=== PATIENT | female | born 1965 | race Caucasian/White ===

== ENCOUNTER 2016-08-07 21:29 | Emergency (ER) | payer MEDICARE, MEDICAID ==
[~2016-08-07 21:29] MED LIST: CYMBALTA PO; GABAPENTIN PO; TRAMADOL PO
== END 2016-08-07 23:27 | disposition left against medical advice (07) ==
LOC: ER 23:00
DX: R51 Headache (principal); R50.9 Fever, unspecified; Z53.21 Procedure and treatment not carried out due to patient leaving prior to being seen by health care provider

== ENCOUNTER 2016-08-11 07:00 | Emergency (ER) | payer MEDICARE, MEDICAID ==
[~2016-08-11] VITALS: Ht 160 cm; Wt 91.0 kg
[2016-08-11] MEDS ORDERED: ACETAMINOPHEN WITH CODEINE 120-12MG/5ML UDC PO ONE (09:30)
[2016-08-11 10:10] LABS: CLARITY URINE CLEAR (CLEAR); COLOR URINE YELLOW (YELLOW); GLUCOSE URINE NEGATIVE (NEGATIVE); KETONES URINE NEGATIVE (NEGATIVE); LEUKOCYTE ESTERASE URINE NEGATIVE (NEGATIVE); NITRITE URINE NEGATIVE (NEGATIVE); OCCULT BLOOD URINE 3+ (NEGATIVE); PROTEIN URINE NEGATIVE (NEGATIVE); SPECIFIC GRAVITY URINE 1.023 (1.005-1.030); UROBILINOGEN URINE 0.2 E.U./dL (0.2-1.0)
[2016-08-11 10:34] LABS: SQUAMOUS EPITHELIAL CELL URINE 2+ /lpf (RARE/1+)
[2016-08-11 10:35] LABS: BACTERIA URINE TRACE
[2016-08-11 10:36] LABS: AMORPHOUS SEDIMENT URINE 1+ /lpf; MUCUS URINE 2+ /lpf (< = 2+)
[2016-08-11] MEDS ORDERED: KETOROLAC 30MG/ML VIAL IV ONE (10:45)
[2016-08-11] MEDS ORDERED: SODIUM CHLORIDE 0.9% 1,000 ML IV ONE (10:45)
[2016-08-11 11:15] LABS: DIFFERENTIAL COMMENT 0; HEMATOCRIT. 30.1 % (36.0-48.0); HEMOGLOBIN. 9.6 g/dL (12.0-16.0); MEAN CORPUSCULAR HEMOGLOBIN 23.6 pg (28.0-32.0); MEAN CORPUSCULAR HGB CONC 31.8 g/dL (31.0-37.0); PLATELET 383 x1000/uL (130-400); RED BLOOD CELL COUNT 4.07 mill/uL (4.2-5.4); RED CELL DISTRIBUTION WIDTH 19.1 % (11.6-14.6); WHITE BLOOD COUNT 10.3 x1000/uL (4.5-11.0)
[2016-08-11 11:22] LABS: ANION GAP 13; CARBON DIOXIDE 25 mEq/L (21-32); CHLORIDE 106 mEq/L (98-107); INDEX HEMOLYSI 1 (1-3); INDEX ICTERIC 1 (1-4); INDEX LIPEMIC 1 (1-3); UREA NITROGEN BLOOD 10 mg/dL (7-21); eGFR > 60 mL/min (>60)
[2016-08-11 11:37] LABS: ANISOCYTOSIS 1+
[2016-08-11 11:38] LABS: HYPOCHROMASIA 1+; PLATELET ESTIMATE NORMAL
[2016-08-11 13:20] VITALS: BP 139/89
== END 2016-08-11 13:24 | disposition home or self-care (01) ==
LOC: ER 07:33
DX: J02.9 Acute pharyngitis, unspecified (principal); N39.0 Urinary tract infection, site not specified; M79.7 Fibromyalgia
CPT/HCPCS: 36415; 76770; 80048; 81001; 81025; 85007; 85027; 87070; 87086; 87430; 96361; 96374; 99285; J1885; J7030

== ENCOUNTER 2017-10-23 12:22 | Emergency (ER) | payer MEDICARE, MEDICAID ==
[~2017-10-23] VITALS: Ht 160 cm; Wt 86.0 kg
[~2017-10-23 12:22] MED LIST changes: -CYMBALTA PO; +DULO60CA44 PO; +TRAM50TA3 PO; -TRAMADOL PO
[2017-10-23 14:19] LABS: CLARITY URINE CLOUDY (CLEAR); COLOR URINE YELLOW (YELLOW); KETONES URINE NEGATIVE (NEGATIVE); LEUKOCYTE ESTERASE URINE NEGATIVE (NEGATIVE); NITRITE URINE NEGATIVE (NEGATIVE); OCCULT BLOOD URINE NEGATIVE (NEGATIVE); PH URINE 5.5 (4.5-8.0); PROTEIN URINE NEGATIVE (NEGATIVE); SPECIFIC GRAVITY URINE 1.024 (1.005-1.030); UROBILINOGEN URINE 0.2 E.U./dL (0.2-1.0)
[2017-10-23 14:40] LABS: CHLORIDE 108 mEq/L (98-107)
[2017-10-23 15:02] LABS: BASOPHILS % 1.1 % (0.0-2.0); HEMATOCRIT. 32.8 % (36.0-48.0); HEMOGLOBIN. 10.5 g/dL (12.0-16.0); LYMPHOCYTES % 26.2 % (20.0-50.0); MEAN CORPUSCULAR HEMOGLOBIN 23.3 pg (28.0-32.0); MEAN CORPUSCULAR VOLUME 72.6 fL (81.0-99.0); MEAN PLATELET VOLUME 8.1 fl (7.4-10.4); MONOCYTES % 7.7 % (2.0-8.0); PLATELET 465 x1000/uL (130-400); RED BLOOD CELL COUNT 4.51 mill/uL (4.2-5.4); RED CELL DISTRIBUTION WIDTH 23.5 % (11.6-14.6)
[2017-10-23] MEDS ORDERED: SODIUM CHLORIDE 0.9% 1,000 ML IV ONE (15:47)
[2017-10-23] MEDS ORDERED: KETOROLAC 30MG/ML VIAL IV STA (15:47)
[2017-10-23] MEDS ORDERED: ONDANSETRON HCL 4MG/2ML VIAL IV STA (15:47)
[2017-10-23 15:51] LABS: PLATELET ESTIMATE INCREASED
[2017-10-23 17:58] VITALS: BP 134/82
== END 2017-10-23 18:33 | disposition home or self-care (01) ==
LOC: ER 14:49
DX: R10.2 Pelvic and perineal pain (principal); M54.89 Other dorsalgia; R30.0 Dysuria; I10 Essential (primary) hypertension; Z96.649 Presence of unspecified artificial hip joint
CPT/HCPCS: 36415; 74176; 80053; 81003; 81025; 83690; 85025; 96374; 96375; 99285; J1885; J2405; J7030

== ENCOUNTER 2017-12-14 17:37 | Emergency (ER) | payer OTHER, MEDICAID ==
[~2017-12-14] VITALS: Ht 165.1 cm; Wt 86.0 kg
[2017-12-14 18:01] VITALS: BP 130/89
== END 2017-12-15 01:39 | disposition left against medical advice (07) ==
LOC: ER 22:03
DX: Z53.21 Procedure and treatment not carried out due to patient leaving prior to being seen by health care provider (principal)

== ENCOUNTER 2018-01-22 14:49 | Emergency (ER) | payer MEDICARE, MEDICAID ==
[~2018-01-22] VITALS: Ht 160 cm; Wt 85.0 kg
[2018-01-22 14:52] VITALS: BP 155/93
== END 2018-01-22 19:07 | disposition left against medical advice (07) ==
LOC: ER 14:49
DX: Z00.8 Encounter for other general examination (principal); Z53.21 Procedure and treatment not carried out due to patient leaving prior to being seen by health care provider

== ENCOUNTER 2018-09-24 13:53 | Emergency (ER) | payer MEDICARE, MEDICAID ==
[~2018-09-24] VITALS: Ht 165.1 cm; Wt 84.0 kg
[2018-09-24] MEDS ORDERED: MORPHINE SULFATE 10 MG/ML CPJ IM ONE (17:15)
[2018-09-24] MEDS ORDERED: ONDANSETRON 4MG ODT PO ONE (17:15)
[2018-09-24 17:23] LABS: CLARITY URINE CLOUDY (CLEAR); COLOR URINE YELLOW (YELLOW); KETONES URINE TRACE (NEGATIVE); LEUKOCYTE ESTERASE URINE 1+ (NEGATIVE); NITRITE URINE POSITIVE (NEGATIVE); OCCULT BLOOD URINE 2+ (NEGATIVE); PH URINE 6.5 (4.5-8.0); PROTEIN URINE NEGATIVE (NEGATIVE)
[2018-09-24 19:07] VITALS: BP 150/86
== END 2018-09-24 19:09 | disposition home or self-care (01) ==
LOC: ER 13:53
DX: S43.401A Unspecified sprain of right shoulder joint, initial encounter (principal); N12 Tubulo-interstitial nephritis, not specified as acute or chronic; I10 Essential (primary) hypertension; Z96.649 Presence of unspecified artificial hip joint; Z98.890 Other specified postprocedural states; W01.0XXA Fall on same level from slipping, tripping and stumbling without subsequent striking against object, initial encounter; Y93.89 Activity, other specified; Y92.89 Other specified places as the place of occurrence of the external cause; Y99.8 Other external cause status
CPT/HCPCS: 73030; 81003; 81025; 87077; 87086; 87186; 96372; 99284; J2270; Q0162

== ENCOUNTER 2018-12-28 21:58 | Emergency (ER) | payer MEDICARE, MEDICAID ==
[~2018-12-28] VITALS: Ht 165.1 cm; Wt 84.0 kg
[2018-12-28] MEDS ORDERED: SODIUM CHLORIDE 0.9% 1,000 ML IV ONE (22:46)
[2018-12-28] MEDS ORDERED: ONDANSETRON HCL 4MG/2ML INJ IV STA (22:46)
[2018-12-28] MEDS ORDERED: MORPHINE SULFATE 4 MG/ML CPJ (NOT FOR IM USE) IV STA (22:46)
[2018-12-28] MEDS ORDERED: KETOROLAC 30MG/ML VIAL IV STA (22:46)
[2018-12-28 23:00] LABS: BASOPHILS % 1.2 % (0.0-2.0); HEMATOCRIT. 41.4 % (36.0-48.0); HEMOGLOBIN. 14.3 g/dL (12.0-16.0); LYMPHOCYTES % 33.2 % (20.0-50.0); MEAN CORPUSCULAR HEMOGLOBIN 30.2 pg (28.0-32.0); MEAN CORPUSCULAR VOLUME 87.6 fL (81.0-99.0); MEAN PLATELET VOLUME 8.7 fl (7.4-10.4); MONOCYTES % 6.2 % (2.0-8.0); NEUTROPHILS % 55.4 % (40.0-76.0); PLATELET 358 x1000/uL (130-400); RED BLOOD CELL COUNT 4.73 mill/uL (4.2-5.4); RED CELL DISTRIBUTION WIDTH 13.7 % (11.6-14.6)
[2018-12-28 23:02] LABS: CHLORIDE 110 mEq/L (98-107)
[2018-12-28 23:03] LABS: PROTHROMBIN TIME 10.1 sec (9.6-11.0)
[2018-12-28 23:04] LABS: HCG SCREEN NEGATIVE
[2018-12-28 23:06] LABS: ETHANOL BLOOD < 10 mg/dL
[2018-12-28 23:09] LABS: CLARITY URINE CLOUDY (CLEAR); COLOR URINE YELLOW (YELLOW); KETONES URINE NEGATIVE (NEGATIVE); LEUKOCYTE ESTERASE URINE 1+ (NEGATIVE); NITRITE URINE NEGATIVE (NEGATIVE); OCCULT BLOOD URINE 1+ (NEGATIVE); PH URINE 5.5 (4.5-8.0); PROTEIN URINE NEGATIVE (NEGATIVE); SPECIFIC GRAVITY URINE 1.017 (1.005-1.030); UROBILINOGEN URINE 0.2 E.U./dL (0.2-1.0)
[2018-12-28 23:21] LABS: *AMPHETAMINES SCREEN URINE NEGATIVE (NEGATIVE); *BARBITURATES SCREEN URINE NEGATIVE (NEGATIVE); *BENZODIAZEPINES SCREEN URINE NEGATIVE (NEGATIVE); *COCAINE SCREEN URINE NEGATIVE (NEGATIVE); METHADONE URINE SCREEN NEGATIVE (NEGATIVE)
[2018-12-28 23:22] LABS: CANNABINOID URINE SCREEN NEGATIVE (NEGATIVE); OPIATES URINE SCREEN NEGATIVE (NEGATIVE); PHENCYCLIDINE URINE SCREEN NEGATIVE (NEGATIVE)
[2018-12-29] MEDS ORDERED: CEFTRIAXONE 1 G PREMIX 50 ML IV ONE (01:30)
[2018-12-29 02:15] VITALS: BP 136/80
== END 2018-12-29 02:20 | disposition home or self-care (01) ==
LOC: ER 21:58
DX: N30.90 Cystitis, unspecified without hematuria (principal); I10 Essential (primary) hypertension; M79.7 Fibromyalgia; Z87.448 Personal history of other diseases of urinary system; Z96.641 Presence of right artificial hip joint; Z79.899 Other long term (current) drug therapy
CPT/HCPCS: 36415; 71045; 74176; 80053; 80305; 80320; 81003; 83605; 83690; 83880; 84484; 84703; 85025; 85610; 87040; 87086; 93005; 96374; 96375; 99284; J0696; J1885; J2270; J2405; J7030; G0480

== ENCOUNTER 2019-01-01 19:14 | Emergency (ER) | payer MEDICARE, MEDICAID ==
[~2019-01-01] VITALS: Ht 165.1 cm; Wt 87.0 kg
[2019-01-01] MEDS ORDERED: ONDANSETRON HCL 4MG/2ML INJ IV STA (21:12)
[2019-01-01] MEDS ORDERED: MORPHINE SULFATE 4 MG/ML CPJ (NOT FOR IM USE) IV STA (21:12)
[2019-01-01] MEDS ORDERED: SODIUM CHLORIDE 0.9% 1,000 ML IV ONE (21:12)
[2019-01-01 21:22] LABS: CLARITY URINE CLEAR (CLEAR); COLOR URINE YELLOW (YELLOW); KETONES URINE TRACE (NEGATIVE); LEUKOCYTE ESTERASE URINE NEGATIVE (NEGATIVE); NITRITE URINE NEGATIVE (NEGATIVE); OCCULT BLOOD URINE 1+ (NEGATIVE); PH URINE 5.5 (4.5-8.0); PROTEIN URINE NEGATIVE (NEGATIVE); SPECIFIC GRAVITY URINE 1.032 (1.005-1.030)
[2019-01-01 21:50] LABS: CHLORIDE 109 mEq/L (98-107)
[2019-01-01 21:51] LABS: HEMATOCRIT. 38.6 % (36.0-48.0); HEMOGLOBIN. 13.3 g/dL (12.0-16.0); LYMPHOCYTES % 30.8 % (20.0-50.0); MEAN CORPUSCULAR HEMOGLOBIN 30.2 pg (28.0-32.0); MEAN CORPUSCULAR VOLUME 87.3 fL (81.0-99.0); MEAN PLATELET VOLUME 8.7 fl (7.4-10.4); NEUTROPHILS % 56.2 % (40.0-76.0); PLATELET 327 x1000/uL (130-400); RED BLOOD CELL COUNT 4.42 mill/uL (4.2-5.4); RED CELL DISTRIBUTION WIDTH 13.8 % (11.6-14.6)
[2019-01-01 21:59] LABS: HCG SCREEN NEGATIVE
[2019-01-02] MEDS: KETOROLAC 30MG/ML VIAL IV NR ×3 (01:24→03:50)
[2019-01-02] MEDS ORDERED: VISCOUS LIDOCAINE 2% 15 ML UDC MM STA (03:51)
[2019-01-02] MEDS ORDERED: HALOPERIDOL LACTATE 5MG/ML VIAL IM ONE (04:00)
[2019-01-02] MEDS ORDERED: MAGNESIUM/ALUMINUM HYDROXIDE/SIMETHICONE 30ML UDC PO ONE (04:00)
[2019-01-02 04:37] VITALS: BP 152/94
== END 2019-01-02 04:44 | disposition home or self-care (01) ==
LOC: ER 19:59 → CANBEDREQ 22:53 → ER 01-02 04:44
DX: R10.9 Unspecified abdominal pain (principal); I10 Essential (primary) hypertension; Z96.649 Presence of unspecified artificial hip joint; Z98.890 Other specified postprocedural states
CPT/HCPCS: 36415; 71045; 74176; 80053; 81003; 83690; 84484; 84703; 85025; 87040; 87086; 93005; 96372; 96374; 96375; 99284; J1630; J1885; J2270; J2405; J7030

== ENCOUNTER 2020-03-01 19:34 | Emergency (ER) | payer MEDICARE, MEDICAID ==
[2020-03-01] MEDS ORDERED: KETOROLAC 30MG/ML VIAL IM SCH (20:15)
[2020-03-01] MEDS ORDERED: HYDROCODONE/ACETAMINOPHEN 5/325MG TABLET PO SCH (20:15)
[2020-03-01 20:48] VITALS: BP 174/112
== END 2020-03-01 20:49 | disposition home or self-care (01) ==
LOC: ER 19:34
DX: K08.89 Other specified disorders of teeth and supporting structures (principal); K02.9 Dental caries, unspecified; I10 Essential (primary) hypertension; M79.7 Fibromyalgia; Z98.890 Other specified postprocedural states
CPT/HCPCS: 96372; 99283; J1885

== ENCOUNTER 2021-02-22 14:44 | Emergency (ER) | payer MEDICARE, MEDICAID ==
[~2021-02-22] VITALS: Ht 165.1 cm; Wt 66.0 kg
[2021-02-22] MEDS ORDERED: FAMOTIDINE 20MG/2ML VIAL IV STA (14:58)
[2021-02-22] MEDS ORDERED: MAGNESIUM/ALUMINUM HYDROXIDE/SIMETHICONE 30ML UDC PO STA (14:58)
[2021-02-22] MEDS ORDERED: SODIUM CHLORIDE 0.9% 1,000 ML IV ONE (15:00)
[2021-02-22 15:41] LABS: BASOPHILS % 0.7 % (0.0-2.0); EOSINOPHILS % 3.3 % (0.0-5.0); HEMATOCRIT. 41.5 % (36.0-48.0); HEMOGLOBIN. 14.1 g/dL (12.0-16.0); LYMPHOCYTES % 25.8 % (20.0-50.0); MEAN CORPUSCULAR HEMOGLOBIN 30.4 pg (28.0-32.0); MEAN CORPUSCULAR VOLUME 89.6 fL (81.0-99.0); MEAN PLATELET VOLUME 8.5 fl (7.4-10.4); MONOCYTES % 5.1 % (2.0-8.0); NEUTROPHILS % 65.1 % (40.0-76.0); PLATELET 367 x1000/uL (130-400); RED BLOOD CELL COUNT 4.64 mill/uL (4.2-5.4)
[2021-02-22 15:48] LABS: CHLORIDE 108 mEq/L (98-107)
[2021-02-22 16:20] LABS: PROTHROMBIN TIME 10.9 sec (9.6-11.0)
[2021-02-22] MEDS ORDERED: MORPHINE SULFATE 4 MG/ML CPJ (NOT FOR IM USE) IV STA (18:03)
[2021-02-22] MEDS ORDERED: ONDANSETRON HCL 4MG/2ML INJ IV STA (18:03)
[2021-02-22] MEDS ORDERED: MORPHINE SULFATE 2 MG/ML CPJ (NOT FOR IM USE) IV NR (18:45)
[2021-02-22 20:26] LABS: CLARITY URINE CLEAR (CLEAR); COLOR URINE YELLOW (YELLOW); KETONES URINE NEGATIVE (NEGATIVE); LEUKOCYTE ESTERASE URINE 1+ (NEGATIVE); NITRITE URINE NEGATIVE (NEGATIVE); OCCULT BLOOD URINE NEGATIVE (NEGATIVE); PROTEIN URINE NEGATIVE (NEGATIVE); SPECIFIC GRAVITY URINE 1.042 (1.005-1.030); UROBILINOGEN URINE 0.2 E.U./dL (0.2-1.0)
[2021-02-22] MEDS ORDERED: NITR-87 MT (21:38)
[2021-02-22] MEDS ORDERED: IBUP-2028 MT (21:38)
[2021-02-22 21:53] VITALS: BP 133/84
== END 2021-02-22 21:53 | disposition home or self-care (01) ==
LOC: ER 14:44
DX: R10.9 Unspecified abdominal pain (principal); N39.0 Urinary tract infection, site not specified; E78.00 Pure hypercholesterolemia, unspecified; I10 Essential (primary) hypertension; M79.7 Fibromyalgia; Z87.891 Personal history of nicotine dependence; Z98.890 Other specified postprocedural states
CPT/HCPCS: 36415; 74177; 76705; 80053; 81003; 83605; 83690; 84484; 85025; 85610; 93005; 96361; 96374; 96375; 99285; J2270; J2405; J3490

== ENCOUNTER 2021-03-10 22:36 | Emergency (ER) | payer OTHER, MEDICAID ==
[~2021-03-10] VITALS: Ht 160 cm; Wt 82.0 kg
[~2021-03-10 22:36] MED LIST changes: +IBUP-2028 MT; +MORPHINE SULFATE 2 MG/ML CPJ (NOT FOR IM USE) IV NR; +NITR-87 MT
[2021-03-10] MEDS ORDERED: MAGNESIUM/ALUMINUM HYDROXIDE/SIMETHICONE 30ML UDC PO STA (23:12)
[2021-03-10] MEDS ORDERED: MORPHINE SULFATE 4 MG/ML CPJ (NOT FOR IM USE) IV STA (23:12)
[2021-03-10] MEDS ORDERED: SODIUM CHLORIDE 0.9% 1,000 ML IV ONE (23:15)
[2021-03-10 23:34] LABS: BASOPHILS % 0.6 % (0.0-2.0); EOSINOPHILS % 3.6 % (0.0-5.0); LYMPHOCYTES % 32.1 % (20.0-50.0); MEAN CORPUSCULAR HEMOGLOBIN 31.3 pg (28.0-32.0); MEAN CORPUSCULAR VOLUME 89.2 fL (81.0-99.0); MEAN PLATELET VOLUME 8.1 fl (7.4-10.4); MONOCYTES % 7.2 % (2.0-8.0); NEUTROPHILS % 56.5 % (40.0-76.0); PLATELET 322 x1000/uL (130-400); RED BLOOD CELL COUNT 4.15 mill/uL (4.2-5.4)
[2021-03-10 23:41] LABS: CHLORIDE 110 mEq/L (98-107)
[2021-03-11] MEDS ORDERED: IOHEXOL-300 100 ML BOTTLE ONE (01:33)
[2021-03-11] MEDS ORDERED: FAMOTIDINE 20MG TABLET PO NR (02:30)
[2021-03-11] MEDS ORDERED: MAGNESIUM/ALUMINUM HYDROXIDE/SIMETHICONE 30ML UDC PO NR (02:30)
[2021-03-11] MEDS ORDERED: VISCOUS LIDOCAINE 2% 15 ML UDC PO NR (02:30)
[2021-03-11] MEDS ORDERED: FAMO40TA70 MT (04:10)
[2021-03-11 04:53] LABS: CLARITY URINE CLEAR (CLEAR); COLOR URINE YELLOW (YELLOW); SPECIFIC GRAVITY URINE 1.039 (1.005-1.030)
[2021-03-11 04:54] LABS: KETONES URINE NEGATIVE (NEGATIVE); LEUKOCYTE ESTERASE URINE NEGATIVE (NEGATIVE); NITRITE URINE NEGATIVE (NEGATIVE); OCCULT BLOOD URINE NEGATIVE (NEGATIVE); PROTEIN URINE NEGATIVE (NEGATIVE); UROBILINOGEN URINE 0.2 E.U./dL (0.2-1.0)
[2021-03-11 05:02] LABS: PROTHROMBIN TIME 10.9 sec (9.6-11.0)
[2021-03-11 06:27] VITALS: BP 116/69
== END 2021-03-11 06:31 | disposition home or self-care (01) ==
LOC: ER 22:36
DX: R10.13 Epigastric pain (principal); R11.0 Nausea; R42 Dizziness and giddiness; E78.00 Pure hypercholesterolemia, unspecified; I10 Essential (primary) hypertension; M79.7 Fibromyalgia; Z79.899 Other long term (current) drug therapy
CPT/HCPCS: 36415; 74177; 80053; 81003; 83605; 83690; 84484; 85025; 85610; 93005; 96361; 96374; 99285; J2270; J7030; Q9967

== ENCOUNTER 2021-05-12 16:55 | Emergency (ER) | payer OTHER, MEDICAID ==
[~2021-05-12] VITALS: Ht 160 cm; Wt 82.0 kg
[~2021-05-12 16:55] MED LIST changes: +FAMO40TA70 MT; -MORPHINE SULFATE 2 MG/ML CPJ (NOT FOR IM USE) IV NR
[2021-05-12] MEDS ORDERED: MECL-159 MT (18:50)
[2021-05-12] MEDS ORDERED: IBUP-2029 MT (18:52)
[2021-05-12 19:16] VITALS: BP 153/74
== END 2021-05-12 19:18 | disposition home or self-care (01) ==
LOC: ER 16:55
DX: S93.501A Unspecified sprain of right great toe, initial encounter (principal); H81.399 Other peripheral vertigo, unspecified ear; E78.00 Pure hypercholesterolemia, unspecified; I10 Essential (primary) hypertension; M79.7 Fibromyalgia; Z98.1 Arthrodesis status; Z98.890 Other specified postprocedural states; W01.0XXA Fall on same level from slipping, tripping and stumbling without subsequent striking against object, initial encounter; Y93.89 Activity, other specified; Y92.018 Other place in single-family (private) house as the place of occurrence of the external cause
CPT/HCPCS: 73630; 99283

== ENCOUNTER 2021-08-19 07:08 | Emergency (ER) | payer OTHER, MEDICAID ==
[~2021-08-19] VITALS: Ht 160 cm; Wt 83.0 kg
[~2021-08-19 07:08] MED LIST changes: +IBUP-2029 MT; +MECL-159 MT
[2021-08-19] MEDS ORDERED: METHOCARBAMOL 500MG TABLET PO ONE (08:15)
[2021-08-19] MEDS ORDERED: ACETAMINOPHEN 325MG TABLET PO ONE (08:15)
[2021-08-19] MEDS ORDERED: KETOROLAC 60MG/2ML VIAL IM ONE (08:15)
[2021-08-19] MEDS ORDERED: LIDOCAINE 5% PATCH TOP SCH (09:00)
[2021-08-19] MEDS ORDERED: TOPUD PO (09:38)
[2021-08-19] MEDS ORDERED: IBUP-2028 MT (09:38)
[2021-08-19] MEDS ORDERED: LIDO1ADH23 TP (09:38)
[2021-08-19] MEDS ORDERED: METH-653 MT (09:38)
[2021-08-19 10:01] VITALS: BP 140/87
== END 2021-08-19 10:02 | disposition home or self-care (01) ==
LOC: ER 07:08
DX: R51.9 Headache, unspecified (principal); R11.0 Nausea; E78.00 Pure hypercholesterolemia, unspecified; I10 Essential (primary) hypertension; Z98.890 Other specified postprocedural states; M79.7 Fibromyalgia; Z79.899 Other long term (current) drug therapy
CPT/HCPCS: 93005; 96372; 99284; J1885

== ENCOUNTER 2021-12-07 20:03 | Emergency (ER) | payer OTHER, MEDICAID ==
[~2021-12-07 20:03] MED LIST changes: -DULO60CA44 PO; +DULO60CA45 PO; +LIDO1ADH23 TP; +METH-653 MT; +TOPUD PO
== END 2021-12-07 22:53 | disposition left against medical advice (07) ==
LOC: ER 20:03
DX: Z53.21 Procedure and treatment not carried out due to patient leaving prior to being seen by health care provider (principal)

== ENCOUNTER 2021-12-08 17:24 | Emergency (ER) | payer OTHER, MEDICAID ==
[~2021-12-08] VITALS: Ht 160 cm; Wt 85.0 kg
[2021-12-08 17:42] VITALS: BP 149/81
[2021-12-08] MEDS ORDERED: ACETAMINOPHEN 325MG TABLET PO ONE (21:00)
== END 2021-12-08 23:40 | disposition left against medical advice (07) ==
LOC: ER 17:24
DX: R53.1 Weakness (principal); M79.89 Other specified soft tissue disorders; I10 Essential (primary) hypertension; E78.00 Pure hypercholesterolemia, unspecified; Z79.899 Other long term (current) drug therapy; Z98.890 Other specified postprocedural states
CPT/HCPCS: 73562; 73610; 73630; 99284

== ENCOUNTER 2022-03-13 10:22 | Emergency (ER) | payer OTHER, MEDICAID ==
[~2022-03-13] VITALS: Ht 160 cm; Wt 84.0 kg
[2022-03-13] MEDS ORDERED: KETOROLAC 60MG/2ML VIAL IM ONE (11:00)
[2022-03-13 11:27] LABS: EOSINOPHILS % 3.4 % (0.0-5.0); HEMATOCRIT. 43.1 % (36.0-48.0); HEMOGLOBIN. 14.5 g/dL (12.0-16.0); LYMPHOCYTES % 27.1 % (20.0-50.0); MEAN CORPUSCULAR HEMOGLOBIN 30.7 pg (28.0-32.0); MEAN CORPUSCULAR VOLUME 91.4 fL (81.0-99.0); MONOCYTES % 6.3 % (2.0-8.0); NEUTROPHILS % 62.2 % (40.0-76.0); PLATELET 321 x1000/uL (130-400); RED BLOOD CELL COUNT 4.72 mill/uL (4.2-5.4); RED CELL DISTRIBUTION WIDTH 13.2 % (11.6-14.6)
[2022-03-13 11:36] LABS: CHLORIDE 110 mEq/L (98-107)
[2022-03-13 11:52] LABS: CLARITY URINE CLEAR (CLEAR); COLOR URINE YELLOW (YELLOW); KETONES URINE NEGATIVE (NEGATIVE); LEUKOCYTE ESTERASE URINE NEGATIVE (NEGATIVE); NITRITE URINE NEGATIVE (NEGATIVE); OCCULT BLOOD URINE NEGATIVE (NEGATIVE); PH URINE 6.5 (4.5-8.0); PROTEIN URINE NEGATIVE (NEGATIVE); SPECIFIC GRAVITY URINE 1.017 (1.005-1.030); UROBILINOGEN URINE 0.2 E.U./dL (0.2-1.0)
[2022-03-13] MEDS ORDERED: NAPR-677 MT (13:07)
[2022-03-13 13:30] VITALS: BP 128/87
[2022-03-13 13:32] LABS: ETHANOL BLOOD < 10 mg/dL
[2022-03-13 14:18] LABS: *AMPHETAMINES SCREEN URINE NEGATIVE (NEGATIVE); *BARBITURATES SCREEN URINE NEGATIVE (NEGATIVE); *BENZODIAZEPINES SCREEN URINE NEGATIVE (NEGATIVE); *COCAINE SCREEN URINE NEGATIVE (NEGATIVE); CANNABINOID URINE SCREEN NEGATIVE (NEGATIVE); METHADONE URINE SCREEN NEGATIVE (NEGATIVE); OPIATES URINE SCREEN NEGATIVE (NEGATIVE); PHENCYCLIDINE URINE SCREEN NEGATIVE (NEGATIVE)
== END 2022-03-13 13:30 | disposition home or self-care (01) ==
LOC: ER 10:22
DX: R51.9 Headache, unspecified (principal); I10 Essential (primary) hypertension; E78.00 Pure hypercholesterolemia, unspecified; M79.7 Fibromyalgia; Z98.890 Other specified postprocedural states
CPT/HCPCS: 36415; 70450; 80053; 80305; 80320; 81003; 84484; 85025; 96372; 99284; J1885; G0480

== ENCOUNTER 2022-05-03 15:12 | Emergency (ER) | payer OTHER, MEDICAID ==
[~2022-05-03] VITALS: Ht 162.6 cm; Wt 86.0 kg
[~2022-05-03 15:12] MED LIST changes: +NAPR-677 MT
[2022-05-03 15:33] VITALS: BP 144/99
[2022-05-03 17:50] LABS: BASOPHILS % 0.6 % (0.0-2.0); EOSINOPHILS % 1.1 % (0.0-5.0); HEMATOCRIT. 41.8 % (36.0-48.0); HEMOGLOBIN. 14.3 g/dL (12.0-16.0); LYMPHOCYTES % 21.5 % (20.0-50.0); MEAN CORPUSCULAR HEMOGLOBIN 30.4 pg (28.0-32.0); MEAN CORPUSCULAR VOLUME 88.7 fL (81.0-99.0); MEAN PLATELET VOLUME 8.4 fl (7.4-10.4); MONOCYTES % 6.8 % (2.0-8.0); PLATELET 348 x1000/uL (130-400); RED BLOOD CELL COUNT 4.71 mill/uL (4.2-5.4); RED CELL DISTRIBUTION WIDTH 12.9 % (11.6-14.6)
[2022-05-03 18:04] LABS: CHLORIDE 111 mEq/L (98-107)
[2022-05-03] MEDS ORDERED: MECLIZINE 25MG TABLET PO ONE (18:45)
[2022-05-03] MEDS ORDERED: MECLIZINE 25MG TABLET PO NR (20:45)
[2022-05-03] MEDS ORDERED: MECL-159 MT (22:36)
== END 2022-05-03 22:53 | disposition home or self-care (01) ==
LOC: ER 15:12
DX: R42 Dizziness and giddiness (principal); R51.9 Headache, unspecified; R11.0 Nausea; F32.9 Major depressive disorder, single episode, unspecified; E78.00 Pure hypercholesterolemia, unspecified; I10 Essential (primary) hypertension; Z98.890 Other specified postprocedural states; Z79.899 Other long term (current) drug therapy
CPT/HCPCS: 36415; 70450; 71045; 80053; 84484; 85025; 99285; J8597

== ENCOUNTER 2023-06-19 15:31 | Emergency (ER) | payer OTHER, MEDICAID ==
[~2023-06-19] VITALS: Ht 162.6 cm; Wt 86.2 kg
[~2023-06-19 15:31] MED LIST changes: -MECL-159 MT; +MECL-299 MT
[2023-06-19 15:47] VITALS: O2SAT 98
[2023-06-19 16:23] LABS: CLARITY URINE TURBID (CLEAR); COLOR URINE DARK YELLOW (YELLOW); GLUCOSE URINE NEGATIVE (NEGATIVE); KETONES URINE NEGATIVE (NEGATIVE); LEUKOCYTE ESTERASE URINE NEGATIVE (NEGATIVE); NITRITE URINE NEGATIVE (NEGATIVE); OCCULT BLOOD URINE 1+ (NEGATIVE); PH URINE 5.5 (4.5-8.0); PROTEIN URINE NEGATIVE (NEGATIVE); SPECIFIC GRAVITY URINE 1.031 (1.005-1.030)
[2023-06-19 16:46] LABS: AMORPHOUS SEDIMENT URINE 3+ /lpf; BACTERIA URINE TRACE; SQUAMOUS EPITHELIAL CELL URINE RARE /lpf (RARE/1+); WBC URINE 0-2 /hpf (0-2)
[2023-06-19] MEDS: IBUPROFEN 400MG TABLET PO ONE (19:31)
[2023-06-19] MEDS: IBUPROFEN 400MG TABLET PO NR (19:38)
[2023-06-19 20:22] VITALS: BP 129/75; PULSE 84; RESP 20; TEMP 98.1
== END 2023-06-19 20:40 | disposition home or self-care (01) ==
LOC: ER 15:31
DX: R10.30 Lower abdominal pain, unspecified (principal); F32.9 Major depressive disorder, single episode, unspecified; E78.00 Pure hypercholesterolemia, unspecified; I10 Essential (primary) hypertension; Z98.890 Other specified postprocedural states
CPT/HCPCS: 76830; 76856; 81003; 81025; 99284

== ENCOUNTER 2023-08-15 13:11 | Emergency (ER) | payer OTHER, MEDICAID ==
[~2023-08-15] VITALS: Ht 162.6 cm; Wt 86.0 kg
[2023-08-15 13:32] VITALS: O2SAT 99
[2023-08-15 13:52] LABS: BASOPHILS % 0.8 % (0.0-2.0); EOSINOPHILS % 2.4 % (0.0-5.0); HEMATOCRIT. 41.9 % (36.0-48.0); HEMOGLOBIN. 14.6 g/dL (12.0-16.0); LYMPHOCYTES % 31.9 % (20.0-50.0); MEAN CORPUSCULAR HEMOGLOBIN 30.9 pg (28.0-32.0); MEAN CORPUSCULAR HGB CONC 34.9 g/dL (31.0-37.0); MEAN CORPUSCULAR VOLUME 88.5 fL (81.0-99.0); MEAN PLATELET VOLUME 8.1 fl (7.4-10.4); MONOCYTES % 7.1 % (2.0-8.0); NEUTROPHILS % 57.8 % (40.0-76.0); PLATELET 363 x1000/uL (130-400); RED BLOOD CELL COUNT 4.74 mill/uL (4.2-5.4); RED CELL DISTRIBUTION WIDTH 13.1 % (11.6-14.6); WHITE BLOOD COUNT 8.9 x1000/uL (4.5-11.0)
[2023-08-15 14:07] LABS: ALANINE AMINOTRANSFERASE 14 IU/L (10-49); ALBUMIN 4.8 g/dL (3.2-4.8); ASPARTATE AMINOTRANSFERASE 20 IU/L (<34); BILIRUBIN TOTAL 0.4 mg/dL (0.1-1.0); CALCIUM 8.9 mg/dL (8.7-10.4); CARBON DIOXIDE 21 mEq/L (21-32); CHLORIDE 108 mEq/L (98-107); CREATININE 0.7 mg/dL (0.6-1.0); GLUCOSE 87 mg/dL (70-105); POTASSIUM 3.8 mEq/L (3.5-5.1); PROTEIN TOTAL 8.2 g/dL (6.0-8.3); SODIUM 137 mEq/L (136-145); UREA NITROGEN BLOOD 12 mg/dL (9-23)
[2023-08-15] MEDS: HYDROCODONE/ACETAMINOPHEN 10/325MG TABLET PO ONE (15:06)
[2023-08-15 15:30] VITALS: BP 155/88; PULSE 100; RESP 20; TEMP 98.3
== END 2023-08-15 15:52 | disposition home or self-care (01) ==
LOC: ER 13:11
DX: D25.9 Leiomyoma of uterus, unspecified (principal); I10 Essential (primary) hypertension; E78.00 Pure hypercholesterolemia, unspecified; Z98.890 Other specified postprocedural states; Z79.899 Other long term (current) drug therapy
CPT/HCPCS: 36415; 80053; 85025; 99283

== ENCOUNTER 2023-12-01 12:18 | Emergency (ER) | payer MEDICAID, OTHER ==
[~2023-12-01] VITALS: Ht 160 cm; Wt 87.0 kg
[2023-12-01 12:21] VITALS: O2SAT 98
[2023-12-01 15:09] LABS: BASOPHILS % 0.8 % (0.0-2.0); EOSINOPHILS % 2.6 % (0.0-5.0); HEMATOCRIT. 41.7 % (36.0-48.0); LYMPHOCYTES % 26.8 % (20.0-50.0); MEAN CORPUSCULAR HEMOGLOBIN 30.4 pg (28.0-32.0); MEAN CORPUSCULAR HGB CONC 33.6 g/dL (31.0-37.0); MEAN CORPUSCULAR VOLUME 90.4 fL (81.0-99.0); MEAN PLATELET VOLUME 8.6 fl (7.4-10.4); MONOCYTES % 5.4 % (2.0-8.0); NEUTROPHILS % 64.4 % (40.0-76.0); PLATELET 362 x1000/uL (130-400); RED BLOOD CELL COUNT 4.61 mill/uL (4.2-5.4); RED CELL DISTRIBUTION WIDTH 13.3 % (11.6-14.6); WHITE BLOOD COUNT 8.5 x1000/uL (4.5-11.0)
[2023-12-01 15:12] LABS: CHLORIDE 106 mEq/L (98-107); POTASSIUM 3.8 mEq/L (3.5-5.1); SODIUM 139 mEq/L (136-145)
[2023-12-01 15:13] LABS: CARBON DIOXIDE 25 mEq/L (21-32)
[2023-12-01 15:14] LABS: CALCIUM 9.4 mg/dL (8.7-10.4)
[2023-12-01 15:18] LABS: CREATININE 0.8 mg/dL (0.6-1.0); GLUCOSE 99 mg/dL (70-105); UREA NITROGEN BLOOD 13 mg/dL (9-23)
[2023-12-01 15:19] LABS: CLARITY URINE CLOUDY (CLEAR); COLOR URINE DARK YELLOW (YELLOW); GLUCOSE URINE NEGATIVE (NEGATIVE); KETONES URINE TRACE (NEGATIVE); LEUKOCYTE ESTERASE URINE TRACE (NEGATIVE); NITRITE URINE NEGATIVE (NEGATIVE); OCCULT BLOOD URINE NEGATIVE (NEGATIVE); PH URINE 8.5 (4.5-8.0); PROTEIN URINE TRACE (NEGATIVE); SPECIFIC GRAVITY URINE 1.025 (1.005-1.030)
[2023-12-01 15:43] LABS: RBC URINE 0-2 /hpf (0-2); SQUAMOUS EPITHELIAL CELL URINE 2+ /lpf (RARE/1+)
[2023-12-01 15:44] LABS: BACTERIA URINE 3+; WBC URINE 0-2 /hpf (0-2)
[2023-12-01] MEDS ORDERED: SULF1TAB48 MT (16:53)
[2023-12-01 17:15] VITALS: BP 134/82; PULSE 70; RESP 19; TEMP 97.7
== END 2023-12-01 18:01 | disposition home or self-care (01) ==
LOC: ER 12:18
DX: R10.30 Lower abdominal pain, unspecified (principal); I10 Essential (primary) hypertension; E78.00 Pure hypercholesterolemia, unspecified; F32.A Depression, unspecified; Z79.899 Other long term (current) drug therapy; Z98.890 Other specified postprocedural states
CPT/HCPCS: 36415; 74176; 80048; 81003; 85025; 99284